=== PATIENT | male | born 1990 | race Hispanic/Latino ===

== ENCOUNTER 2017-01-18 10:30 | Inpatient (IN) | payer BC ==
[~2017-01-18] VITALS: Ht 177.8 cm; Wt 105.2 kg
[~2017-01-18 10:30] MED LIST: CIPROFLOXACN500 MG PO; FLEXERIL PO; METRONIDAZOL500 MG PO; ULTRAM50 M1 PO
[2017-01-18 11:05] LABS: HEMATOCRIT 46.4 % (39.0-50.0); HEMOGLOBIN 16.2 g/dl (14.0-18.0); MEAN CELL VOLUME 83.3 fL CALC (80.0-100.0); MEAN CORPUSCULAR HGB 29.1 pG CALC (26.0-32.0); MEAN CORPUSCULAR HGB CONC 34.9 g/L CALC (32.0-36.0); RED BLOOD COUNT 5.57 mill/uL (4.70-6.10); RED CELL DISTRI WIDTH 13.4 % (11.5-15.5)
[2017-01-18 11:21] LABS: D-DIMER 0.26 mg/L (0.19-0.60); PROTHROMBIN TIME 11.1 SECONDS (9.0-12.5)
[2017-01-18 11:36] LABS: ALBUMIN 4.9 g/dL (3.2-5.0); ALKALINE PHOSPHATASE 66 u/l (38-126); BILIRUBIN, TOTAL 0.9 mg/dL (0.0-1.4); BUN 15 mg/dL (9-20); BUN/CREATININE RATIO 16 (12-20 (CALC)); CALCIUM 9.8 mg/dL (8.4-10.2); CARBON DIOXIDE 23 mmol/l (22-30); CHLORIDE 102 mmol/l (95-108); CREATININE 0.9 mg/dL (0.7-1.3); GFR > 60 ML/MIN (>=60 (CALC)); GFR FOR AFR.AMER. > 60 ML/MIN (>=60 (CALC)); GLUCOSE 131 mg/dL (75-110); IMMATURE GRANULOCYTES 0.4 % (0.0-1.0); SGOT/AST 22 u/l (17-59); SGPT/ALT 46 u/l (21-72); SODIUM 140 mmol/l (137-146); TOTAL PROTEIN 8.3 g/dL (6.3-8.2)
[2017-01-18 11:37] LABS: MANUAL DIFFERENTIAL YES
[2017-01-18 11:38] LABS: ANION GAP 19 (6-22 (CALC)); BAND 9 % (0-8)
[2017-01-18 11:39] LABS: PLATELET COUNT 19 thou/uL (130-400)
[2017-01-18 11:48] LABS: MYOGLOBIN 35 ng/mL (0 - 121)
[2017-01-18 17:42] VITALS: BP 141/89
[2017-01-18 20:12] VITALS: BP 115/73
[2017-01-18 23:40] VITALS: BP 124/80
[2017-01-19] VITALS (11 sets, daily range): BP systolic 107–137; BP diastolic 59–78
[2017-01-19 04:58] LABS: URINE BILIRUBIN - DIPSTICK NEGATIVE (NEGATIVE); URINE BLOOD DIPSTICK SMALL (NEGATIVE); URINE CLARITY CLEAR; URINE COLOR YELLOW; URINE GLUCOSE - DIPSTICK NEGATIVE (NEGATIVE); URINE KETONE TRACE mg/dL (NEGATIVE); URINE LEUK ESTERASE NEGATIVE (Negative); URINE NITRITE - DIPSTICK NEGATIVE (Negative); URINE PROTEIN - DIPSTICK NEGATIVE (NEG-TRACE)
[2017-01-19 05:06] LABS: URINE BACTERIA FEW hpf; URINE MUCUS FEW hpf (NONE-FEW); URINE SQUAMOUS EPITHELIAL CELL FEW EPI/hpf (0-FEW); URINE WBC 0-2 WBC/hpf (0-5)
[2017-01-19 05:13] LABS: ANION GAP 15 (6-22 (CALC)); BUN 13 mg/dL (9-20); BUN/CREATININE RATIO 16 (12-20 (CALC)); CARBON DIOXIDE 27 mmol/l (22-30); CHLORIDE 103 mmol/l (95-108); CREATININE 0.9 mg/dL (0.7-1.3); GFR > 60 ML/MIN (>=60 (CALC)); GFR FOR AFR.AMER. > 60 ML/MIN (>=60 (CALC)); GLUCOSE 99 mg/dL (75-110); MAGNESIUM 1.8 mg/dL (1.6-2.3); SODIUM 140 mmol/l (137-146)
[2017-01-19 05:28] LABS: HEMATOCRIT 41.6 % (39.0-50.0); HEMOGLOBIN 14.2 g/dl (14.0-18.0); MEAN CELL VOLUME 84.7 fL CALC (80.0-100.0); MEAN CORPUSCULAR HGB 28.9 pG CALC (26.0-32.0); MEAN CORPUSCULAR HGB CONC 34.1 g/L CALC (32.0-36.0); RED BLOOD COUNT 4.91 mill/uL (4.70-6.10); RED CELL DISTRI WIDTH 13.3 % (11.5-15.5)
[2017-01-19 06:03] LABS: IMMATURE GRANULOCYTES 0.6 % (0.0-1.0); NEUT# 5.72 thou/uL (1.82-7.42)
[2017-01-20 00:11] VITALS: BP 115/77
[2017-01-20 03:40] VITALS: BP 110/70
[2017-01-20 06:01] LABS: HEMATOCRIT 43.2 % (39.0-50.0); IMMATURE GRANULOCYTES 0.3 % (0.0-1.0); MEAN CELL VOLUME 83.4 fL CALC (80.0-100.0); MEAN CORPUSCULAR HGB CONC 34.7 g/L CALC (32.0-36.0); NEUT# 4.49 thou/uL (1.82-7.42); RED BLOOD COUNT 5.18 mill/uL (4.70-6.10); RED CELL DISTRI WIDTH 13.2 % (11.5-15.5)
[2017-01-20 06:21] LABS: ANION GAP 18 (6-22 (CALC)); BUN 12 mg/dL (9-20); BUN/CREATININE RATIO 16 (12-20 (CALC)); CALCIUM 9.5 mg/dL (8.4-10.2); CARBON DIOXIDE 25 mmol/l (22-30); CHLORIDE 104 mmol/l (95-108); CREATININE 0.7 mg/dL (0.7-1.3); GFR > 60 ML/MIN (>=60 (CALC)); GFR FOR AFR.AMER. > 60 ML/MIN (>=60 (CALC)); GLUCOSE 112 mg/dL (75-110); POTASSIUM 4.3 mmol/l (3.5-5.1); SODIUM 142 mmol/l (137-146)
[2017-01-20 07:45] VITALS: BP 108/64
[2017-01-20 16:46] VITALS: BP 119/78
[2017-01-20 19:00] VITALS: BP 119/69
[2017-01-21 04:03] VITALS: BP 89/55
[2017-01-21 05:50] LABS: HEMATOCRIT 40.7 % (39.0-50.0); HEMOGLOBIN 14.1 g/dl (14.0-18.0); IMMATURE GRANULOCYTES 0.2 % (0.0-1.0); MEAN CELL VOLUME 83.6 fL CALC (80.0-100.0); MEAN CORPUSCULAR HGB CONC 34.6 g/L CALC (32.0-36.0); NEUT# 6.04 thou/uL (1.82-7.42); RED BLOOD COUNT 4.87 mill/uL (4.70-6.10); RED CELL DISTRI WIDTH 13.2 % (11.5-15.5)
[2017-01-21 06:04] LABS: ANION GAP 16 (6-22 (CALC)); BUN 13 mg/dL (9-20); BUN/CREATININE RATIO 16 (12-20 (CALC)); CALCIUM 9.4 mg/dL (8.4-10.2); CARBON DIOXIDE 26 mmol/l (22-30); CHLORIDE 106 mmol/l (95-108); CREATININE 0.8 mg/dL (0.7-1.3); GFR > 60 ML/MIN (>=60 (CALC)); GFR FOR AFR.AMER. > 60 ML/MIN (>=60 (CALC)); GLUCOSE 93 mg/dL (75-110); POTASSIUM 4.1 mmol/l (3.5-5.1); SODIUM 144 mmol/l (137-146)
[2017-01-21 07:59] VITALS: BP 121/70
[2017-01-21 11:15] VITALS: BP 139/84
[2017-01-21] MEDS ORDERED: PREDNISONE20 MG PO (12:13)
[2017-01-21] MEDS ORDERED: LEVAQUIN750 MG PO (12:13)
== END 2017-01-21 14:37 | disposition home or self-care (01) | DRG 194 ==
LOC: ED 10:30 → ED-I 14:35 → ED 16:11 → MS2 16:12
PROVIDERS: Emergency Medicine; Nurse Practitioner Family; ADMIT Internal Medicine; ATTEND Internal Medicine
PROC: 30233R1 Transfusion of Nonautologous Platelets into Peripheral Vein, Percutaneous Approach (ICD-10-PCS; principal; 2017-01-19)
DX: J18.9 Pneumonia, unspecified organism (principal); D69.3 Immune thrombocytopenic purpura; R73.9 Hyperglycemia, unspecified
CPT/HCPCS: J1566; P9035

== ENCOUNTER 2017-10-15 19:27 | Emergency (ER) | payer BC ==
[~2017-10-15] VITALS: Ht 177.8 cm; Wt 109.1 kg
[~2017-10-15 19:27] MED LIST changes: +LEVAQUIN750 MG PO; +PREDNISONE20 MG PO
[2017-10-15] MEDS ORDERED: MULTIVITAMI1 PO (19:40)
[2017-10-15 20:06] LABS: HEMATOCRIT 42.8 % (39.0-50.0); HEMOGLOBIN 14.7 g/dl (14.0-18.0); MEAN CELL VOLUME 84.4 fL CALC (80.0-100.0); MEAN CORPUSCULAR HGB CONC 34.3 g/L CALC (32.0-36.0); RED BLOOD COUNT 5.07 mill/uL (4.70-6.10); RED CELL DISTRI WIDTH 14.5 % (11.5-15.5)
[2017-10-15 20:18] LABS: ALBUMIN 4.4 g/dL (3.2-5.0); ALKALINE PHOSPHATASE 59 u/l (38-126); ANION GAP 16 (6-22 (CALC)); BILIRUBIN, TOTAL 0.6 mg/dL (0.0-1.4); BUN 13 mg/dL (9-20); BUN/CREATININE RATIO 11 (12-20 (CALC)); CARBON DIOXIDE 27 mmol/l (22-30); CHLORIDE 103 mmol/l (95-108); CREATININE 1.2 mg/dL (0.7-1.3); GFR > 60 ML/MIN (>=60 (CALC)); GFR FOR AFR.AMER. > 60 ML/MIN (>=60 (CALC)); IMMATURE GRANULOCYTES 0.3 % (0.0-1.0); NEUT# 5.93 thou/uL (1.82-7.42); POTASSIUM 3.8 mmol/l (3.5-5.1); SGPT/ALT 67 u/l (21-72); SODIUM 142 mmol/l (137-146); TOTAL PROTEIN 7.6 g/dL (6.3-8.2)
[2017-10-15 20:20] LABS: SGOT/AST 43 u/l (17-59)
[2017-10-15 20:28] LABS: MYOGLOBIN 95 ng/mL (0 - 121)
[2017-10-15 20:29] LABS: ACT PARTIAL THROMBO TIME 26.4 SECONDS (20.0-32.5); INTERNATIONAL NORMALIZED RATIO 0.9 RATIO (0.7-1.3); PROTHROMBIN TIME 10.5 SECONDS (9.0-12.5)
[2017-10-15 20:42] LABS: URINE BILIRUBIN - DIPSTICK NEGATIVE (NEGATIVE); URINE BLOOD DIPSTICK TRACE-INTACT (NEGATIVE); URINE COLOR YELLOW; URINE GLUCOSE - DIPSTICK NEGATIVE (NEGATIVE); URINE KETONE NEGATIVE (NEGATIVE); URINE LEUK ESTERASE NEGATIVE (NEGATIVE); URINE NITRITE - DIPSTICK NEGATIVE (Negative); URINE PH 6.5 (4.5-8.0); URINE PROTEIN - DIPSTICK NEGATIVE (NEG-TRACE); URINE SPECIFIC GRAVITY 1.025; URINE UROBILINOGEN - DIPSTICK 0.2 E.U./dL (0.2)
[2017-10-15 20:43] LABS: URINE CLARITY CLEAR
[2017-10-15 20:44] LABS: BARBITURATES NEGATIVE (NEGATIVE); COCAINE NEGATIVE (NEGATIVE); METHADONE NEGATIVE (NEGATIVE); OXCYCODONE NEGATIVE (NEGATIVE); TETRAHYDROCANNABIONOL POSITIVE (NEGATIVE); TRICYLIC ANTIDEPRESSANTS NEGATIVE (NEGATIVE)
[2017-10-15] MEDS ORDERED: PREDNISONE10 MG PO (21:05)
[2017-10-15 21:16] VITALS: BP 93/67
== END 2017-10-15 21:17 | disposition home or self-care (01) | DRG 313 ==
LOC: ED 19:27
PROVIDERS: Emergency Medicine
DX: R07.9 Chest pain, unspecified (principal); D69.3 Immune thrombocytopenic purpura
CPT/HCPCS: S0164

== ENCOUNTER 2017-11-09 18:48 | Emergency (ER) | payer BC ==
[~2017-11-09] VITALS: Ht 177.8 cm; Wt 114.4 kg
[~2017-11-09 18:48] MED LIST changes: +MULTIVITAMI1 PO; +PREDNISONE10 MG PO
[2017-11-09 19:10] VITALS: BP 122/76
[2017-11-09] MEDS ORDERED: IBUPROFEN600 MG PO (19:30)
== END 2017-11-09 19:50 | disposition home or self-care (01) | DRG 556 ==
LOC: ED 18:48
PROC: 2W3EX1Z Immobilization of Right Hand using Splint (ICD-10-PCS; principal; 2017-11-09)
DX: M79.641 Pain in right hand (principal)

== ENCOUNTER 2017-12-16 22:51 | Emergency (ER) | payer SELFPAY ==
[~2017-12-16] VITALS: Ht 177.8 cm; Wt 114.0 kg
[~2017-12-16 22:51] MED LIST changes: +IBUPROFEN600 MG PO
[2017-12-16] MEDS ORDERED: PREDNISONE20 MG PO (23:16)
[2017-12-17] MEDS ORDERED: TRAMADOL HCL50 MG PO (00:13)
[2017-12-17 00:16] VITALS: BP 126/72
== END 2017-12-17 00:25 | disposition home or self-care (01) | DRG 605 ==
LOC: ED 22:51
DX: S90.31XA Contusion of right foot, initial encounter (principal); W22.8XXA Striking against or struck by other objects, initial encounter; Y93.89 Activity, other specified; Y92.009 Unspecified place in unspecified non-institutional (private) residence as the place of occurrence of the external cause